=== PATIENT | male | born 1955 | race Caucasian/White ===

== ENCOUNTER 2019-03-17 07:51 | Emergency (ER) | payer OTHER ==
[2019-03-17 08:17] LABS: ADD MAN DIFF? NO
[2019-03-17 08:18] LABS: WHITE BLOOD COUNT 14.4 10^3/ul (4.8-10.8)
[2019-03-17 08:18] LABS: BASOPHIL # 0.1 10^3/ul (0.0-0.1); BASOPHILS % 0.3 % (0.0-2.0); EOSINOPHILS # 0.2 10^3/ul (0.0-0.5); EOSINOPHILS % 1.4 % (0.0-7.0); HEMOGLOBIN 13.8 g/dl (14.0-18.0); LYMPHOCYTES # 2.1 10^3/ul (0.8-2.9); LYMPHOCYTES % 14.3 % (15.0-51.0); MEAN CORPUSCULAR HEMOGLOBIN 29.7 pg (29.0-33.0); MEAN CORPUSCULAR HGB CONC 34.5 g/dl (32.0-37.0); MEAN PLATELET VOLUME 10.4 fl (7.4-10.4); MONOCYTE # 0.8 10^3/ul (0.3-0.9); MONOCYTES % 5.5 % (0.0-11.0); NEUTROPHIL # 11.1 10^3/ul (1.6-7.5); NEUTROPHILS % 77.1 % (39.0-77.0); PLATELET COUNT 122 10^3/UL (140-415); RED BLOOD COUNT 4.65 10^6/ul (4.70-6.10); RED CELL DISTRIBUTION WIDTH 13.2 % (11.5-14.5)
[2019-03-17] MEDS: ONDANSETRON 4 MG INJ IV (08:28)
[2019-03-17] MEDS: SOD CHLORIDE 0.9% 1,000 ML IV (08:29)
[2019-03-17 08:39] LABS: ALANINE AMINOTRANSFERASE 35 IU/L (13-69); ALBUMIN 4.2 g/dl (3.3-4.9); ALKALINE PHOSPHATASE 82 IU/L (42-121); ANION GAP 18 (5-13); ASPARTATE AMINO TRANSFERASE 35 IU/L (15-46); BLOOD UREA NITROGEN 23 mg/dl (7-20); CALCIUM 9.3 mg/dl (8.4-10.2); CARBON DIOXIDE 16 mmol/L (21-31); CHLORIDE 108 mmol/L (97-110); CREATINE KINASE 65 IU/L (23-200); CREATININE 1.39 mg/dl (0.61-1.24); Estimated GFR 51 mL/min (>60); GLUCOSE 158 mg/dl (70-220); POTASSIUM 3.5 mmol/L (3.5-5.1); SODIUM 142 mmol/L (135-144)
[2019-03-17 09:03] LABS: PROTIME 14.3 Sec (11.9-14.9); PT RATIO 1.1
[2019-03-17 09:11] LABS: ACETAMINOPHEN < 10.0 ug/ml (10.0-30.0); ETHANOL < 10.0 mg/dl (0-0); SALICYLATE < 1.0 mg/dl (5.0-30.0)
[2019-03-17] MEDS: ACETAMINOPHEN 500 MG TAB PO (09:11)
[2019-03-17] MEDS: LORAZEPAM 2 MG INJ IV ×2 (09:11→11:59)
[2019-03-17 10:43] LABS: ADD UMIC YES; UR ASCORBIC ACID NEGATIVE (NEGATIVE); UR BACTERIA FEW /HPF (NONE SEEN); UR BILIRUBIN (Dip) NEGATIVE (NEGATIVE); UR BLOOD (Dip) NEGATIVE (NEGATIVE); UR CLARITY SLIGHTLY CLOUDY (CLEAR); UR COLOR YELLOW (YELLOW); UR GLUCOSE (Dip) NEGATIVE (NEGATIVE); UR KETONES (Dip) TRACE mg/dL (NEGATIVE); UR LEUKOCYTE ESTERASE (Dip) NEGATIVE Leu/ul (NEGATIVE); UR NITRITE (Dip) NEGATIVE (NEGATIVE); UR RBC 0 /HPF (0-5); UR SPECIFIC GRAVITY (Dip) 1.013 (1.003-1.030); UR TOTAL PROTEIN (Dip) 3+ mg/dl (NEGATIVE); UR UROBILINOGEN (Dip) NEGATIVE (NEGATIVE); UR WBC 2 /HPF (0-5)
[2019-03-17 11:10] LABS: AMPHETAMINE/METHAMPHETAMINE Negative (NEGATIVE); BARBITURATES Negative (NEGATIVE); BENZODIAZEPINES Negative (NEGATIVE); CANNABINOIDS Positive (NEGATIVE); COCAINE Negative (NEGATIVE); OPIATES Negative (NEGATIVE)
[2019-03-17] MEDS: ACETAMINOPHEN 325 MG TAB PO (19:10)
[2019-03-17] MEDS: LORAZEPAM 1 MG TAB PO (19:10)
== END 2019-03-17 22:53 | disposition home or self-care (01) ==
LOC: E/R 07:51
DX: T43.212A Poisoning by selective serotonin and norepinephrine reuptake inhibitors, intentional self-harm, initial encounter (principal); I25.10 Atherosclerotic heart disease of native coronary artery without angina pectoris
CPT/HCPCS: 36415; 80053; 80307; 81001; 82550; 85025; 85610; 93005; 96374; 96375; 96376; 99284-25

== ENCOUNTER 2019-04-04 06:43 | Emergency (ER) | payer OTHER ==
[2019-04-04] MEDS: KETOROLAC 15 MG INJ IM (07:03)
[2019-04-04] MEDS: ACETAMINOPHEN 325 MG TAB PO (07:03)
== END 2019-04-04 08:27 | disposition home or self-care (01) ==
LOC: E/R 06:43
DX: M54.5 Low back pain (principal); L03.116 Cellulitis of left lower limb; J44.9 Chronic obstructive pulmonary disease, unspecified; I10 Essential (primary) hypertension; E03.9 Hypothyroidism, unspecified; Z87.891 Personal history of nicotine dependence
CPT/HCPCS: 96372; 99284-25